=== PATIENT | male | born 1935 | race Caucasian/White ===

== ENCOUNTER 2020-05-04 13:24 | Emergency (ER) | payer MEDICARE ==
[~2020-05-04] VITALS: Ht 172.7 cm; Wt 75.0 kg
[~2020-05-04 13:24] MED LIST: COR6; LOSA50TA3; SIMV10TA2
[2020-05-04] MEDS ORDERED: SODIUM CHLORIDE 0.9% 1,000 ML IV ONE (13:45)
[2020-05-04 14:55] LABS: BASOPHILS % 0.4 % (0.0-2.0); EOSINOPHILS % 4.8 % (0.0-5.0); HEMOGLOBIN. 12.7 g/dL (14.0-18.0); LYMPHOCYTES % 13.1 % (20.0-50.0); MEAN CORPUSCULAR HEMOGLOBIN 32.4 pg (28.0-32.0); MEAN CORPUSCULAR VOLUME 94.1 fL (80.0-94.0); MEAN PLATELET VOLUME 8.6 fl (7.4-10.4); MONOCYTES % 8.2 % (2.0-8.0); NEUTROPHILS % 73.5 % (40.0-76.0); PLATELET 146 x1000/uL (130-400); RED BLOOD CELL COUNT 3.94 mill/uL (4.7-6.1); RED CELL DISTRIBUTION WIDTH 12.9 % (11.6-14.6)
[2020-05-04 14:56] LABS: CHLORIDE 108 mEq/L (98-107)
[2020-05-04 14:59] LABS: INR 1.1; PROTHROMBIN TIME 11.5 sec (9.6-11.0)
[2020-05-04 16:54] LABS: CLARITY URINE CLEAR (CLEAR); COLOR URINE YELLOW (YELLOW); KETONES URINE NEGATIVE (NEGATIVE); LEUKOCYTE ESTERASE URINE NEGATIVE (NEGATIVE); NITRITE URINE NEGATIVE (NEGATIVE); OCCULT BLOOD URINE NEGATIVE (NEGATIVE); PROTEIN URINE NEGATIVE (NEGATIVE); SPECIFIC GRAVITY URINE 1.019 (1.005-1.030); UROBILINOGEN URINE 0.2 E.U./dL (0.2-1.0)
[2020-05-04 17:11] VITALS: BP 162/77
== END 2020-05-04 17:20 | disposition home or self-care (01) ==
LOC: ER 13:44 → CANBEDREQ 20:57
DX: R55 Syncope and collapse (principal); R10.9 Unspecified abdominal pain; I50.9 Heart failure, unspecified
CPT/HCPCS: 36415; 70450; 71045; 74176; 80053; 81003; 84484; 85025; 85610; 93005; 96360; 99285; J7030

== ENCOUNTER 2020-07-06 12:37 | Emergency (ER) | payer MEDICARE ==
[~2020-07-06] VITALS: Ht 167.6 cm; Wt 78.0 kg
[2020-07-06 13:12] LABS: CHLORIDE 110 mEq/L (98-107)
[2020-07-06 13:13] LABS: HEMATOCRIT. 37.6 % (42.0-52.0); HEMOGLOBIN. 12.7 g/dL (14.0-18.0); MEAN CORPUSCULAR HEMOGLOBIN 32.2 pg (28.0-32.0); MEAN CORPUSCULAR VOLUME 95.2 fL (80.0-94.0); MEAN PLATELET VOLUME 8.5 fl (7.4-10.4); PLATELET 148 x1000/uL (130-400); RED BLOOD CELL COUNT 3.95 mill/uL (4.7-6.1); RED CELL DISTRIBUTION WIDTH 14.2 % (11.6-14.6)
[2020-07-06 13:40] LABS: PLATELET ESTIMATE NORMAL
[2020-07-06] MEDS ORDERED: SODIUM CHLORIDE 0.9% 500 ML IV ONE (14:45)
[2020-07-06 16:29] VITALS: BP 123/73
== END 2020-07-06 16:31 | disposition home or self-care (01) ==
LOC: ER 12:49
DX: R42 Dizziness and giddiness (principal); C61 Malignant neoplasm of prostate; I50.9 Heart failure, unspecified; I25.10 Atherosclerotic heart disease of native coronary artery without angina pectoris; I44.7 Left bundle-branch block, unspecified; Z92.21 Personal history of antineoplastic chemotherapy; Z95.810 Presence of automatic (implantable) cardiac defibrillator
CPT/HCPCS: 36415; 71045; 80053; 83880; 84484; 85025; 93005; 96360; 99285; J7030

== ENCOUNTER 2021-05-07 22:00 | Inpatient (IN) | payer MEDICARE ==
[~2021-05-07] VITALS: Ht 185.4 cm; Wt 71.9 kg
[~2021-05-07 22:00] MED LIST changes: +AMIO100T4 PO; +ATOR20TA65 PO; +DIGO125T20 PO; +LOSA50TA41 PO; +MEX150 PO; +PANT40TA51 PO
[2021-05-07] MEDS ORDERED: NITROGLYCERIN 0.4MG TABLET SL SL PRN (22:30)
[2021-05-07 23:35] LABS: INR 1.4; PARTIAL THROMBOPLASTIN TIME 28.7 sec (23.4-31.0); PROTHROMBIN TIME 14.6 sec (9.6-11.0)
[2021-05-07 23:40] LABS: CHLORIDE 107 mEq/L (98-107)
[2021-05-07 23:44] LABS: ETHANOL BLOOD < 10 mg/dL
[2021-05-07 23:46] LABS: *AMPHETAMINES SCREEN URINE NEGATIVE (NEGATIVE); *BARBITURATES SCREEN URINE NEGATIVE (NEGATIVE); *BENZODIAZEPINES SCREEN URINE NEGATIVE (NEGATIVE); *COCAINE SCREEN URINE NEGATIVE (NEGATIVE)
[2021-05-07 23:48] LABS: CANNABINOID URINE SCREEN NEGATIVE (NEGATIVE); METHADONE URINE SCREEN NEGATIVE (NEGATIVE); OPIATES URINE SCREEN NEGATIVE (NEGATIVE); PHENCYCLIDINE URINE SCREEN NEGATIVE (NEGATIVE)
[2021-05-08 01:14] LABS: HEMATOCRIT. 33.5 % (42.0-52.0); HEMOGLOBIN. 11.2 g/dL (14.0-18.0); MEAN CORPUSCULAR HEMOGLOBIN 33.7 pg (28.0-32.0); MEAN CORPUSCULAR VOLUME 100.7 fL (80.0-94.0); MEAN PLATELET VOLUME 9.2 fl (7.4-10.4); PLATELET 187 x1000/uL (130-400); RED BLOOD CELL COUNT 3.33 mill/uL (4.7-6.1); RED CELL DISTRIBUTION WIDTH 16.3 % (11.6-14.6)
[2021-05-08 01:16] LABS: PLATELET ESTIMATE NORMAL
[2021-05-08 01:35] LABS: HEMATOCRIT 31.6 % (42.0-52.0); HEMOGLOBIN 10.9 g/dL (14.0-18.0); MEAN CORPUSCULAR VOLUME 101.4 fL (80.0-94.0); PLATELET 171 x1000/uL (130-400); RED BLOOD CELL COUNT 3.12 mill/uL (4.7-6.1); RED CELL DISTRIBUTION WIDTH 16.1 % (11.6-14.6)
[2021-05-08 10:05] VITALS: BP 155/50
[2021-05-08 11:35] VITALS: BP 155/50
[2021-05-08] MEDS ORDERED: REGADENOSON 0.4 MG/5 ML IV SCH (13:15)
[2021-05-08] MEDS ORDERED: ENOXAPARIN 30MG/0.3ML SYR SUBCUT SCH (13:30)
[2021-05-08] MEDS ORDERED: ACETAMINOPHEN 325MG TABLET PO PRN (14:45)
[2021-05-08] MEDS ORDERED: HYDROCODONE/ACETAMINOPHEN 5/325MG TABLET PO PRN (14:45)
[2021-05-08] MEDS ORDERED: GUAIFENESIN 200MG/10ML SUGAR FREE UDC PO PRN (14:45)
[2021-05-08] MEDS ORDERED: DOCUSATE SODIUM 100MG CAPSULE PO PRN (14:45)
[2021-05-08] MEDS ORDERED: ACETAMINOPHEN 650MG SUPP PR PRN (14:45)
[2021-05-08] MEDS ORDERED: ONDANSETRON HCL 4MG/2ML INJ IV PRN (14:45)
[2021-05-08] MEDS ORDERED: NA PHOS,M-B/NA PHOS,DI-BA ENEMA 118ML PR PRN (14:45)
[2021-05-08] MEDS ORDERED: CLONIDINE 0.1MG TABLET PO PRN (14:45)
[2021-05-08] MEDS ORDERED: MORPHINE SULFATE 2 MG/ML CPJ (NOT FOR IM USE) IV PRN (14:45)
[2021-05-08] MEDS ORDERED: MAGNESIUM/ALUMINUM HYDROXIDE/SIMETHICONE 30ML UDC PO PRN (14:45)
[2021-05-08] MEDS ORDERED: DIPHENHYDRAMINE 50MG/ML VIAL IV PRN (14:45)
[2021-05-08] MEDS ORDERED: IPRATROPIUM/ALBUTEROL 0.5-3(2.5)MG/3ML NEB NEB PRN (14:45)
[2021-05-08] MEDS ORDERED: LORAZEPAM 0.5MG TABLET PO PRN (14:45)
[2021-05-08] MEDS ORDERED: NALOXONE HCL 0.4MG/ML VIAL IV PRN (15:15)
[2021-05-08 16:00] VITALS: BP 153/66
[2021-05-08] MEDS: LOSARTAN POTASSIUM 50 MG TABLET PO SCH (17:04)
[2021-05-08] MEDS: MEXILETINE HCL 150MG CAPSULE PO SCH (17:04)
[2021-05-08 20:00] VITALS: BP 123/69
[2021-05-08 20:18] LABS: CLARITY URINE CLEAR (CLEAR); COLOR URINE YELLOW (YELLOW); KETONES URINE NEGATIVE (NEGATIVE); LEUKOCYTE ESTERASE URINE NEGATIVE (NEGATIVE); NITRITE URINE NEGATIVE (NEGATIVE); OCCULT BLOOD URINE NEGATIVE (NEGATIVE); PROTEIN URINE NEGATIVE (NEGATIVE)
[2021-05-08] MEDS: CARVEDILOL 12.5MG TABLET PO SCH (20:25)
[2021-05-08] MEDS ORDERED: FAMOTIDINE 20MG TABLET PO SCH (21:00)
[2021-05-08 23:59] LABS: CREATINE KINASE MB FRACTION 3.2 ng/mL (0.5-3.6)
[2021-05-09] VITALS: BP 146/66
[2021-05-09 04:00] VITALS: BP 145/62
[2021-05-09 07:32] LABS: CHLORIDE 110 mEq/L (98-107)
[2021-05-09 07:59] LABS: BASOPHILS % 0.5 % (0.0-2.0); EOSINOPHILS % 6.9 % (0.0-5.0); HEMATOCRIT. 32.7 % (42.0-52.0); HEMOGLOBIN. 11.3 g/dL (14.0-18.0); LYMPHOCYTES % 15.8 % (20.0-50.0); MEAN CORPUSCULAR HEMOGLOBIN 34.2 pg (28.0-32.0); MEAN CORPUSCULAR VOLUME 99.2 fL (80.0-94.0); MEAN PLATELET VOLUME 9.2 fl (7.4-10.4); MONOCYTES % 13.4 % (2.0-8.0); NEUTROPHILS % 63.4 % (40.0-76.0); PLATELET 192 x1000/uL (130-400); RED BLOOD CELL COUNT 3.29 mill/uL (4.7-6.1); RED CELL DISTRIBUTION WIDTH 16.2 % (11.6-14.6)
[2021-05-09 08:00] VITALS: BP 114/71
[2021-05-09 08:12] LABS: LDL CHOLESTEROL 66 mg/dL (5-100)
[2021-05-09 08:14] LABS: CREATINE KINASE 63 IU/L (39-308)
[2021-05-09 08:15] LABS: HDL CHOLESTEROL 56 mg/dL (40-59)
[2021-05-09 08:17] LABS: CREATINE KINASE MB FRACTION 3.1 ng/mL (0.5-3.6); T4 FREE 1.09 ng/dL (0.76-1.46)
[2021-05-09] MEDS: LOSARTAN POTASSIUM 50 MG TABLET PO SCH (08:26)
[2021-05-09] MEDS: CARVEDILOL 12.5MG TABLET PO SCH (08:26)
[2021-05-09 08:27] LABS: DIGOXIN 0.3 ng/mL (0.9-2.0)
[2021-05-09] MEDS ORDERED: MEXILETINE HCL 150MG CAPSULE PO SCH (09:00)
[2021-05-09] MEDS ORDERED: ENOXAPARIN 40MG/0.4ML SYR SUBCUT SCH (09:00)
[2021-05-09] MEDS ORDERED: ASPIRIN 81MG EC TABLET PO SCH (09:00)
[2021-05-09] MEDS ORDERED: REGADENOSON 0.4 MG/5 ML IV ONE (11:31)
[2021-05-09 12:00] VITALS: BP 104/68
[2021-05-09 16:17] LABS: INR 1.3; PROTHROMBIN TIME 14.1 sec (9.6-11.0)
[2021-05-09 16:40] VITALS: BP 104/68
[2021-05-09 17:01] VITALS: BP 104/68
[2021-05-09] MEDS: MEXILETINE HCL 150MG CAPSULE PO SCH (17:01)
[2021-05-09] MEDS ORDERED: WARFARIN SODIUM 5MG TABLET PO NR (18:00)
[2021-05-10] MEDS ORDERED: AMIODARONE HCL 200 MG TABLET PO SCH (09:00)
== END 2021-05-09 18:09 | disposition home or self-care (01) | DRG 309 ==
LOC: ER 22:00 → 7EST 05-08 01:40 → ENRESERV 05-08 07:37 → ER 05-08 08:50
PROVIDERS: ADMIT Internal Medicine; ATTEND Internal Medicine
DX: I48.0 Paroxysmal atrial fibrillation (principal); D68.9 Coagulation defect, unspecified; I42.9 Cardiomyopathy, unspecified; D64.9 Anemia, unspecified; E78.5 Hyperlipidemia, unspecified; Z20.822 Contact with and (suspected) exposure to COVID-19; I11.9 Hypertensive heart disease without heart failure; I25.10 Atherosclerotic heart disease of native coronary artery without angina pectoris; I49.3 Ventricular premature depolarization; Z79.01 Long term (current) use of anticoagulants; Z79.899 Other long term (current) drug therapy; Z82.49 Family history of ischemic heart disease and other diseases of the circulatory system; Z85.46 Personal history of malignant neoplasm of prostate; Z92.3 Personal history of irradiation; Z95.1 Presence of aortocoronary bypass graft; Z95.810 Presence of automatic (implantable) cardiac defibrillator
CPT/HCPCS: 36415; 71045; 78452; 80048; 80053; 80061; 80162; 80305; 80320; 81003; 82550; 82553; 82962; 83880; 84439; 84443; 84484; 85025; 85027; 87426; 93005; 93017; 93306; 93970; 99285; A9500; J1650; J2785; G0480

== ENCOUNTER 2021-08-03 11:15 | Inpatient (IN) | payer MEDICARE ==
[~2021-08-03] VITALS: Ht 162.6 cm; Wt 68.0 kg
[2021-08-03 12:52] LABS: BASOPHILS % 0.9 % (0.0-2.0); EOSINOPHILS % 6.8 % (0.0-5.0); HEMATOCRIT. 34.3 % (42.0-52.0); HEMOGLOBIN. 11.8 g/dL (14.0-18.0); LYMPHOCYTES % 11.5 % (20.0-50.0); MEAN CORPUSCULAR HEMOGLOBIN 35.2 pg (28.0-32.0); MEAN PLATELET VOLUME 9.8 fl (7.4-10.4); MONOCYTES % 9.8 % (2.0-8.0); PLATELET 211 x1000/uL (130-400); RED BLOOD CELL COUNT 3.36 mill/uL (4.7-6.1); RED CELL DISTRIBUTION WIDTH 17.1 % (11.6-14.6)
[2021-08-03 13:04] LABS: CHLORIDE 109 mEq/L (98-107)
[2021-08-03 21:35] VITALS: BP 144/66
[2021-08-03] MEDS ORDERED: ZOLPIDEM TARTRATE 5MG TABLET PO PRN (22:45)
[2021-08-03] MEDS ORDERED: ACETAMINOPHEN 325MG TABLET PO PRN (22:45)
[2021-08-04] VITALS: BP 115/61
[2021-08-04 04:00] VITALS: BP 142/62
[2021-08-04] MEDS: PANTOPRAZOLE 40MG DR TABLET PO SCH (05:24)
[2021-08-04] MEDS: MEXILETINE HCL 150MG CAPSULE PO SCH ×3 (05:26→20:44)
[2021-08-04 06:02] LABS: BASOPHILS % 0.9 % (0.0-2.0); EOSINOPHILS % 5.9 % (0.0-5.0); HEMATOCRIT. 32.9 % (42.0-52.0); HEMOGLOBIN. 11.3 g/dL (14.0-18.0); LYMPHOCYTES % 19.5 % (20.0-50.0); MEAN CORPUSCULAR HEMOGLOBIN 34.9 pg (28.0-32.0); MEAN CORPUSCULAR VOLUME 101.3 fL (80.0-94.0); MEAN PLATELET VOLUME 9.5 fl (7.4-10.4); MONOCYTES % 14.2 % (2.0-8.0); NEUTROPHILS % 59.5 % (40.0-76.0); PLATELET 202 x1000/uL (130-400); RED BLOOD CELL COUNT 3.25 mill/uL (4.7-6.1); RED CELL DISTRIBUTION WIDTH 16.4 % (11.6-14.6)
[2021-08-04 07:02] LABS: CHLORIDE 108 mEq/L (98-107)
[2021-08-04 07:12] LABS: LDL CHOLESTEROL 55 mg/dL (5-100)
[2021-08-04 07:14] LABS: HDL CHOLESTEROL 46 mg/dL (40-59)
[2021-08-04 08:00] VITALS: BP 158/69
[2021-08-04] MEDS: LOSARTAN POTASSIUM 50 MG TABLET PO SCH (08:49)
[2021-08-04] MEDS: AMIODARONE HCL 200 MG TABLET PO SCH (08:49)
[2021-08-04] MEDS: CARVEDILOL 6.25 MG TABLET PO SCH (08:50)
[2021-08-04] MEDS ORDERED: APIXABAN 5 MG TABLET PO SCH (09:00)
[2021-08-04 12:00] VITALS: BP 158/67
[2021-08-04 12:42] LABS: INR 1.1; PROTHROMBIN TIME 11.3 sec (9.6-11.0)
[2021-08-04 12:50] LABS: T4 FREE 1.12 ng/dL (0.76-1.46)
[2021-08-04 13:04] LABS: DIGOXIN 0.4 ng/mL (0.9-2.0)
[2021-08-04] MEDS: ASPIRIN 81MG EC TABLET PO SCH (13:09)
[2021-08-04] MEDS ORDERED: BISACODYL 10MG SUPP PR PRN (14:45)
[2021-08-04] MEDS ORDERED: HYDROCODONE/ACETAMINOPHEN 5/325MG TABLET PO PRN (14:45)
[2021-08-04] MEDS ORDERED: NALOXONE HCL 0.4MG/ML VIAL IV PRN (14:45)
[2021-08-04] MEDS ORDERED: LORAZEPAM 2MG/ML CPJ IV PRN (14:45)
[2021-08-04] MEDS ORDERED: ONDANSETRON HCL 4MG/2ML INJ IV PRN (14:45)
[2021-08-04] MEDS ORDERED: IPRATROPIUM/ALBUTEROL 0.5-3(2.5)MG/3ML NEB HHN PRN (14:45)
[2021-08-04 16:00] VITALS: BP_SYST 132; BP_SYST 143; BP_SYST 160; BP_DIAS 68; BP_DIAS 71
[2021-08-04 16:18] LABS: CLARITY URINE CLEAR (CLEAR); COLOR URINE YELLOW (YELLOW); KETONES URINE NEGATIVE (NEGATIVE); LEUKOCYTE ESTERASE URINE NEGATIVE (NEGATIVE); NITRITE URINE NEGATIVE (NEGATIVE); OCCULT BLOOD URINE NEGATIVE (NEGATIVE); PH URINE 6.5 (4.5-8.0); PROTEIN URINE NEGATIVE (NEGATIVE); SPECIFIC GRAVITY URINE 1.008 (1.005-1.030)
[2021-08-04 17:21] LABS: BG BASE EXCESS 0.5 mmol/L (-2.0-2.0); BG CARBOXYHEMOGLOBIN 0.1 % (0.5-1.5); BG DEOXYHEMOGLOBIN 3.9 % (0.0-5.0); BG FRACTION INSPIRED OXYGEN 21; BG HCO3 ACT 25.2 mmol/L (22.0-26.0); BG METHEMOGLOBIN 0.2 % (0.0-1.5); BG OXYGEN SATURATION 96.1 % (92.0-98.5); BG OXYHEMOGLOBIN 95.8 % (94.0-97.0); BG PCO2 40.5 mmHg (35.0-45.0); BG PH 7.411 (7.350-7.450); BG PO2 86.1 mmHg (75.0-100.0); BG SAMPLE SITE RIGHT BRACHIAL; BG TOTAL HEMOGLOBIN 13.4 g/dL (12.0-18.0); BG VENT MODE ROOM AIR
[2021-08-04] MEDS ORDERED: DIGOXIN 125MCG TABLET PO SCH (18:00)
[2021-08-04 20:25] VITALS: BP_SYST 106; BP_SYST 116; BP_DIAS 62; BP_DIAS 67
[2021-08-04] MEDS ORDERED: ENOXAPARIN 80MG/0.8ML SYR SUBCUT NR (21:00)
[2021-08-04] MEDS ORDERED: ATORVASTATIN CALCIUM 40MG TABLET PO SCH (21:00)
[2021-08-05 00:01] VITALS: BP 140/70
[2021-08-05 04:00] VITALS: BP 146/70
[2021-08-05] MEDS: MEXILETINE HCL 150MG CAPSULE PO SCH ×2 (05:49→14:00)
[2021-08-05] MEDS: PANTOPRAZOLE 40MG DR TABLET PO SCH (05:49)
[2021-08-05 06:46] LABS: INR 1.1; PARTIAL THROMBOPLASTIN TIME 31.9 sec (23.4-31.0); PROTHROMBIN TIME 11.4 sec (9.6-11.0)
[2021-08-05 07:30] LABS: EOSINOPHILS % 8.8 % (0.0-5.0); HEMATOCRIT. 33.7 % (42.0-52.0); HEMOGLOBIN. 11.6 g/dL (14.0-18.0); LYMPHOCYTES % 20.8 % (20.0-50.0); MEAN CORPUSCULAR VOLUME 101.2 fL (80.0-94.0); MEAN PLATELET VOLUME 9.4 fl (7.4-10.4); MONOCYTES % 13.7 % (2.0-8.0); NEUTROPHILS % 55.7 % (40.0-76.0); PLATELET 224 x1000/uL (130-400); RED BLOOD CELL COUNT 3.33 mill/uL (4.7-6.1); RED CELL DISTRIBUTION WIDTH 16.5 % (11.6-14.6)
[2021-08-05 08:00] VITALS: BP_SYST 137; BP_SYST 141; BP_SYST 160; BP_DIAS 70; BP_DIAS 72
[2021-08-05] MEDS: CARVEDILOL 6.25 MG TABLET PO SCH (08:52)
[2021-08-05] MEDS: ASPIRIN 81MG EC TABLET PO SCH (08:52)
[2021-08-05] MEDS: AMIODARONE HCL 200 MG TABLET PO SCH (08:52)
[2021-08-05] MEDS: LOSARTAN POTASSIUM 50 MG TABLET PO SCH (08:52)
[2021-08-05 09:48] LABS: CHLORIDE 107 mEq/L (98-107)
[2021-08-05 12:00] VITALS: BP_SYST 105; BP_SYST 108; BP_SYST 112; BP_DIAS 53; BP_DIAS 65; BP_DIAS 70
[2021-08-05] MEDS ORDERED: ASPI-1497 MT (16:57)
[2021-08-05] MEDS ORDERED: LOSA50TA3 MT (16:57)
[2021-08-05] MEDS ORDERED: LIP40 MT (16:57)
[2021-08-05] MEDS ORDERED: COR6 MT (16:57)
[2021-08-05] MEDS ORDERED: AMIO100T4 MT (16:57)
[2021-08-05] MEDS ORDERED: MEXI200C PO (16:57)
[2021-08-05 17:00] VITALS: BP_SYST 135; BP_SYST 138; BP_SYST 145; BP_DIAS 52; BP_DIAS 56; BP_DIAS 59
[2021-08-05 17:04] VITALS: BP 135/56
[2021-08-05] MEDS ORDERED: MEXILETINE HCL 150MG CAPSULE PO SCH (21:00)
[2021-08-06] MEDS ORDERED: FAMOTIDINE 20MG TABLET PO SCH (09:00)
== END 2021-08-05 18:20 | disposition home or self-care (01) | DRG 74 ==
LOC: ER 11:15 → EDBEDREQ 13:50 → ER 15:00 → 8WST 21:39
PROVIDERS: ADMIT Internal Medicine; ATTEND Internal Medicine
PROC: 4B02XTZ Measurement of Cardiac Defibrillator, External Approach (ICD-10-PCS; principal; 2021-08-04)
DX: G90.8 Other disorders of autonomic nervous system (principal); I50.22 Chronic systolic (congestive) heart failure; E44.1 Mild protein-calorie malnutrition; I11.0 Hypertensive heart disease with heart failure; E78.5 Hyperlipidemia, unspecified; I48.0 Paroxysmal atrial fibrillation; D64.9 Anemia, unspecified; E86.0 Dehydration; I27.20 Pulmonary hypertension, unspecified; I25.5 Ischemic cardiomyopathy; Z20.822 Contact with and (suspected) exposure to COVID-19; I95.1 Orthostatic hypotension; I25.10 Atherosclerotic heart disease of native coronary artery without angina pectoris; Z95.1 Presence of aortocoronary bypass graft; Z95.810 Presence of automatic (implantable) cardiac defibrillator; I25.2 Old myocardial infarction; Z79.01 Long term (current) use of anticoagulants; Z85.46 Personal history of malignant neoplasm of prostate; Z79.899 Other long term (current) drug therapy; Z91.81 History of falling; Z92.3 Personal history of irradiation; Z86.79 Personal history of other diseases of the circulatory system; Z68.25 Body mass index [BMI] 25.0-25.9, adult
CPT/HCPCS: 36415; 36600; 71045; 80048; 80053; 80061; 80162; 81003; 82375; 82550; 82805; 83735; 83880; 84439; 84443; 84484; 85025; 87426; 93005; 93306; 93880; 97162; 99285; J1650

== ENCOUNTER 2022-02-02 12:04 | Emergency (ER) | payer MEDICARE ==
[~2022-02-02] VITALS: Ht 170.2 cm; Wt 72.0 kg
[~2022-02-02 12:04] MED LIST changes: +AMIO100T4 MT; -AMIO100T4 PO; +ASPI-1497 MT; +COR6 MT; -DIGO125T20 PO; +LIP40 MT; +LOSA50TA3 MT; -LOSA50TA41 PO; -MEX150 PO; +MEXI200C PO
[2022-02-02] MEDS ORDERED: SODIUM CHLORIDE 0.9% 1,000 ML IV ONE (12:45)
[2022-02-02 13:01] LABS: HEMATOCRIT. 35.7 % (42.0-52.0); HEMOGLOBIN. 11.8 g/dL (14.0-18.0); MEAN CORPUSCULAR HEMOGLOBIN 35.5 pg (28.0-32.0); MEAN CORPUSCULAR VOLUME 107.8 fL (80.0-94.0); MEAN PLATELET VOLUME 9.2 fl (7.4-10.4); PLATELET 225 x1000/uL (130-400); RED BLOOD CELL COUNT 3.31 mill/uL (4.7-6.1); RED CELL DISTRIBUTION WIDTH 19.1 % (11.6-14.6)
[2022-02-02 13:12] LABS: CHLORIDE 107 mEq/L (98-107)
[2022-02-02 13:42] LABS: NUCLEATED RED BLOOD CELLS 1 /100 WBC; PLATELET ESTIMATE NORMAL
[2022-02-02 14:04] VITALS: BP 132/57
== END 2022-02-02 14:41 | disposition home or self-care (01) ==
LOC: ER 12:04
DX: R55 Syncope and collapse (principal); R94.31 Abnormal electrocardiogram [ECG] [EKG]; I25.10 Atherosclerotic heart disease of native coronary artery without angina pectoris; I25.2 Old myocardial infarction; Z95.1 Presence of aortocoronary bypass graft; Z95.0 Presence of cardiac pacemaker; Z85.9 Personal history of malignant neoplasm, unspecified
CPT/HCPCS: 36415; 71045; 80053; 85025; 93005; 96360; 99285; J7030